=== PATIENT | female | born 2005 | race Caucasian/White ===

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

== ENCOUNTER 2023-06-12 19:51 | Emergency (ER) | payer OTHER ==
[~2023-06-12] VITALS: Ht 177.8 cm; Wt 52.2 kg
[~2023-06-12 19:51] MED LIST changes: +CYCLOBENZAPRINE10 MG PO; +NITROFURAN25 MG/5 M2 PO
[2023-06-12 20:49] LABS: BILIRUBIN Negative (Negative); BLOOD 3+ (Negative); CLARITY Cloudy (Clear); COLOR Dark Yellow (Yellow); GLUCOSE Negative (Negative); KETONE 2+ (Negative); LEUKO ESTERASE Negative (Negative); NITRITE Negative (Negative); SPECIFIC GRAVITY >= 1.030 (1.001-1.030)
[2023-06-12 21:07] LABS: BACTERIA 2+; MUCOUS 1+; RBC 16-20 rbc/hpf (0-2)
[2023-06-12 21:48] LABS: HEMATOCRIT 44.2 % (37.0-47.0); MEAN CELL VOLUME 85.2 fl (81.0-99.0); MEAN CORPUSCULAR HGB 30.6 pg (27.0-31.0); MEAN PLATELET VOLUME 10.3 fl (9.6-12.3); PLATELET COUNT AUTOMATED 211 10*3/uL (130-400); RED BLOOD COUNT 5.19 10*6/uL (4.10-5.10); RED CELL DISTRI WIDTH 11.5 % (0-14.5); WHITE BLOOD COUNT 15.3 10*3/uL (4.8-10.8)
[2023-06-12 21:50] LABS: MANUAL DIFF REFLEX YES
[2023-06-12 22:07] LABS: TOTAL CELLS COUNTED 100 #CELLS
[2023-06-12 22:08] LABS: PLATELET SUFFICIENCY NORMAL (NORMAL)
[2023-06-12 22:17] LABS: ALKALINE PHOSPHATASE 63 U/L (46-116); BUN 16 mg/dl (9-23); CHLORIDE 104 mmol/L (98-107); POTASSIUM 3.9 mmol/L (3.4-5.1); SGPT/ALT 7 U/L (5-49); TOTAL PROTEIN 7.7 gm/dL (6.0-8.0)
[2023-06-12] MEDS ORDERED: OMNICEF300 MG PO (22:41)
[2023-06-12] MEDS ORDERED: ONDANSETRON4 MG SL (22:41)
== END 2023-06-12 23:20 | disposition home or self-care (01) ==
LOC: ED 19:51
PROVIDERS: Nurse Practitioner Family
DX: N39.0 Urinary tract infection, site not specified (principal); R11.2 Nausea with vomiting, unspecified

== ENCOUNTER 2024-02-03 14:09 | Emergency (ER) | payer OTHER ==
[~2024-02-03] VITALS: Ht 177.8 cm; Wt 50.8 kg
[~2024-02-03 14:09] MED LIST changes: +OMNICEF300 MG PO; +ONDANSETRON4 MG SL
[2024-02-03] MEDS ORDERED: Ondansetron Hydrochloride 4 MG/2 ML VIAL IV ONE (14:35)
[2024-02-03] MEDS ORDERED: SODIUM CHLORIDE 0.9% 1,000 ML IV ONE (14:35)
[2024-02-03 14:48] LABS: BASO % 0.3 % (0.0-1.0); EOS # 0.1 10*3/uL (0.0-0.4); EOS % 0.6 % (1.0-4.0); LYMPH # 2.3 10*3/uL (1.3-4.4); LYMPH % 23.8 % (27.0-41.0); MEAN CELL VOLUME 85.3 fl (81.0-99.0); MEAN CORPUSCULAR HGB 30.3 pg (27.0-31.0); MEAN CORPUSCULAR HGB CONC 35.5 g/dl (33.0-37.0); MONO # 0.5 10*3/uL (0.1-1.0); MONO % 5.5 % (3.0-9.0); NEUT # 6.6 10*3/uL (2.3-7.9); NEUT % 69.6 % (47.0-73.0); PLATELET COUNT AUTOMATED 273 10*3/uL (130-400); RED BLOOD COUNT 5.51 10*6/uL (4.10-5.10); RED CELL DISTRI WIDTH 11.2 % (0-14.5); WHITE BLOOD COUNT 9.5 10*3/uL (4.8-10.8)
[2024-02-03 15:06] LABS: BUN 14 mg/dl (9-23); CHLORIDE 103 mmol/L (98-107); LIPASE 43 U/L (12-53)
[2024-02-03 15:56] LABS: BILIRUBIN Negative (Negative); BLOOD Negative (Negative); CLARITY Clear (Clear); COLOR Yellow (Yellow); GLUCOSE Negative (Negative); KETONE 2+ (Negative); LEUKO ESTERASE Negative (Negative); NITRITE Negative (Negative); PH 5.5 (4.5-8.0); SPECIFIC GRAVITY 1.025 (1.001-1.030)
[2024-02-03 16:04] LABS: BACTERIA 1+; MUCOUS 2+
[2024-02-03] MEDS ORDERED: Ondansetron4 MG PO (16:17)
== END 2024-02-03 16:22 | disposition home or self-care (01) ==
LOC: ED 14:09
PROVIDERS: Nurse Practitioner Family
DX: R11.2 Nausea with vomiting, unspecified (principal); Z98.890 Other specified postprocedural states